=== PATIENT | female | born 1980 | race Caucasian/White ===

== ENCOUNTER 2016-11-15 08:23 | Emergency (ER) | payer BC ==
[~2016-11-15] VITALS: Ht 175.3 cm; Wt 115.0 kg
[~2016-11-15 08:23] MED LIST: ONDA4TAB7 SL
[2016-11-15 08:25] VITALS: BP 129/81; PULSE 99; RESP 16; TEMP 98.1; O2SAT 96
[2016-11-15 08:41] VITALS: BP 139/65; PULSE 98; RESP 18; O2SAT 95
[2016-11-15] MEDS ORDERED: MIRA33504 PO (08:57)
[2016-11-15] MEDS ORDERED: ZOFR4TAB3 SL (08:57)
--- NOTE | 2016-11-15 08:57 | PD ---
HPI Chief Complaint: GI Complaint Time Seen by Provider: 08:45 Travel History International Travel<30 days: No Contact w/Intl Traveler<30days: No Traveled to known affect area: No History of Present Illness HPI Is a 36-year-old woman who presents to the emergency department complaining of nausea and vomiting of . This is her first . She is at 10 weeks 6 days with an EDC of June 07, 2017. She states she's had trouble with nausea and vomiting since 6 weeks. She was using Zofran which helped her a lot however she states she was unable to get a refill from her OB doctor. She went back to the urgent care and they also would not refill her Zofran. She does report that she is scheduled for echo because of risk of adverse effects from the Zofran. She states she otherwise had been feeling one healthy prior to . She has some abdominal pain she to be sick constipation. No pelvic cramping. No vaginal discharge or vaginal bleeding. No urinary symptoms. History Past Medical History Medical History: Denies Significant Hx LMP: 08/31/17 Social History Alcohol Use: No Tobacco Use: No Allergies-Medications (Allergen,Severity, Reaction): Coded Allergies: Penicillin (Verified Allergy, Unknown, 11/15/16) Reported Meds & Prescriptions Reported Meds & Active Scripts Active Ondansetron Odt 4 Mg Tab 4 Mg SL Q6HR PRN Review of Systems Except as stated in HPI: all other systems reviewed are Neg Physical Exam Narrative GENERAL: Well-appearing 36 year-old woman, no acute distress. SKIN: Warm and dry. CARDIOVASCULAR: Regular rate and rhythm. No murmur appreciated. RESPIRATORY: No accessory muscle use. Clear to auscultation. Breath sounds equal bilaterally. GASTROINTESTINAL: Abdomen soft, non-tender, nondistended. Hepatic and splenic margins not palpable. MUSCULOSKELETAL: No obvious deformities. Data Data Last Documented VS Vital Signs Date Time Temp Pulse Resp B/P Pulse Ox O2 Delivery O2 Flow Rate FiO2 11/15/16 08:41 98 18 139/65 95 Room Air 11/15/16 08:25 98.1 Orders Iv Access Insert/Monitor (11/15/16 08:53) Ondansetron Inj (Zofran Inj) (11/15/16 09:00) Ns 1000ml Wide Open 2000 Ml/Hr (11/15/16 09:00) Ns 1000ml Wide Open 2000 Ml/Hr (11/15/16 09:00) MDM Medical Decision Making Medical Screen Exam Complete: Yes Emergency Medical Condition: Yes Differential Diagnosis Nausea vomiting of , dehydration, electrolyte abnormality, infection, other Narrative Course Medical decision making 36 year-old woman with hyperemesis gravidarum. She was using Zofran which helped her a lot but she ran out. We discussed the potential risk of adverse effects from the Zofran versus the risk of maternal dehydration and ongoing vomiting. She would like to continue the Zofran and follow-up with her [place]. I think this is reasonable. Diagnosis Primary Impression: Hyperemesis gravidarum Additional Instructions: Use Zofran sparingly as needed for nausea or vomiting. Use MiraLAX as needed for constipation. Follow-up with your [place] in the next 2-4 days. Return to the emergency department for any new or worsening symptoms. Med/Other Pt SpecificInfo: Prescription(s) given Scripts Polyethylene Glycol 3350 Powder (Miralax Powder)17 Gm Powd17 Gm PO DAILY #1 BOTTLE Mix and dissolve one measuring cap-ful (17 grams) in water or juice. Prov:Willi Downing MD 11/15/16 Ondansetron Odt (Zofran Odt)4 Mg Tab4 Mg SL Q8HR PRN (Nausea/Vomiting) #20 TAB May substitute non-ODT form. Prov:Willi Downing MD 11/15/16 Disposition: 01 DISCHARGE HOME Condition: Stable Willi Downing MD Nov 15, 2016 08:57
[2016-11-15] MEDS ORDERED: SODIUM CHLOR 0.9% 1000 ML INJ 1,000 ML IV ONE ×2 (09:00)
[2016-11-15] MEDS ORDERED: ONDANSETRON HCL 4 MG/2 ML VIAL IV PUSH ONE (09:00)
[2016-11-17] MEDS ORDERED: ONDA4TAB7 SL (15:53)
[2016-12-16] MEDS ORDERED: ONDA4TAB7 SL (13:57)
[2016-12-28] MEDS ORDERED: ONDA4TAB7 SL (09:00)
[2017-01-11] MEDS ORDERED: ZOFR4TAB3 SL (16:07)
[2017-02-25] MEDS ORDERED: AZIT250T3 PO (10:12)
== END 2016-11-15 10:30 | disposition home or self-care (01) ==
LOC: NEPC 08:23
DX: O21.0 Mild hyperemesis gravidarum (principal); Z3A.10 10 weeks gestation of pregnancy
CPT/HCPCS: 96374; 99283; J2405; J7030

== ENCOUNTER → 2017-01-07 | Outpatient (CLI) | payer BC ==
[~2017-01-07] MED LIST changes: +AZIT250T3 PO; +MIRA33504 PO; +ZOFR4TAB3 SL
== END ==
LOC: HPND 07:55
PROVIDERS: ATTEND Obstetrics & Gynecology
DX: O99.212 Obesity complicating pregnancy, second trimester (principal); E66.9 Obesity, unspecified; Z68.37 Body mass index [BMI] 37.0-37.9, adult
CPT/HCPCS: 76811; 76817

== ENCOUNTER → 2017-02-09 | Outpatient (CLI) | payer BC ==
[~2017-02-09] MED LIST changes: -MIRA33504 PO
== END ==
LOC: HPND 07:59
PROVIDERS: ATTEND Obstetrics & Gynecology
DX: O99.212 Obesity complicating pregnancy, second trimester (principal); E66.9 Obesity, unspecified; Z68.37 Body mass index [BMI] 37.0-37.9, adult; Z3A.00 Weeks of gestation of pregnancy not specified
CPT/HCPCS: 76816; 76817; 76825; 76827; 93325

== ENCOUNTER → 2017-03-22 | Outpatient (CLI) | payer BC | LOC: HPND 08:03 | PROVIDERS: ATTEND Obstetrics & Gynecology | DX: O99.323 Drug use complicating pregnancy, third trimester (principal); O99.213 Obesity complicating pregnancy, third trimester; E66.09 Other obesity due to excess calories; Z68.34 Body mass index [BMI] 34.0-34.9, adult; Z3A.29 29 weeks gestation of pregnancy | CPT/HCPCS: 76816 ==

== ENCOUNTER → 2017-04-19 | Outpatient (CLI) | payer BC ==
[~2017-04-19] MED LIST changes: -AZIT250T3 PO
== END ==
LOC: HPND 08:05
PROVIDERS: ATTEND Obstetrics & Gynecology
DX: O99.213 Obesity complicating pregnancy, third trimester (principal); O09.523 Supervision of elderly multigravida, third trimester; Z68.37 Body mass index [BMI] 37.0-37.9, adult
CPT/HCPCS: 76816

== ENCOUNTER 2017-06-13 20:04 | Inpatient (IN) | payer BC ==
[~2017-06-13] VITALS: Ht 175.3 cm; Wt 125.0 kg
[~2017-06-13 20:04] MED LIST changes: +ACYC400T PO
[2017-06-13 22:08] LABS: AUTOMATED NEUTROPHIL # 6.1 TH/MM3 (1.8-7.7); BASOPHIL % 0.3 % (0.0-2.0); EOSINOPHIL # 0.2 TH/MM3 (0-0.4); EOSINOPHIL % 2.3 % (0.0-4.0); HEMO FLAGS DIFF FINAL; LYMPHOCYTE # 1.5 TH/MM3 (1.0-4.8); MEAN CELL VOLUME 79.4 FL (80.0-100.0); MEAN CORPUSCULAR HEMOGLOBIN 26.9 PG (27.0-34.0); MEAN CORPUSCULAR HGB CONC 33.9 % (32.0-36.0); MONO % 6.9 % (0.0-8.0); NEUT % 72.5 % (16.0-70.0); PLATELET COUNT 207 TH/MM3 (150-450); RED BLOOD COUNT 3.66 MIL/MM3 (4.00-5.30); RED CELL DISTRIBUTION WIDTH 13.5 % (11.6-17.2); WHITE BLOOD COUNT 8.5 TH/MM3 (4.0-11.0)
[2017-06-13] MEDS ORDERED: LACTATED RINGER'S 1000 ML INJ 1,000 ML IV PRN (22:41)
[2017-06-13] MEDS ORDERED: SODIUM CHLORID 0.9% 500 ML INJ 500 ML IV PRN (22:45)
[2017-06-13] MEDS ORDERED: OXYTOCIN 30 UNITS-500ML PREMIX 500 ML IV ONE (22:45)
[2017-06-13] MEDS ORDERED: CITRIC ACID-SODIUM CITRATE LIQ 30 ML UDC PO SCH (22:45)
[2017-06-13] MEDS ORDERED: MINERAL OIL 10 ML VIAL TOPICAL PRN (22:45)
[2017-06-13] MEDS ORDERED: LIDOCAINE HCL 1% 50 ML VIAL INFIL PRN (22:45)
[2017-06-13] MEDS ORDERED: LIDOCAINE HCL 1% 50 ML VIAL I-DERMAL PRN (22:45)
[2017-06-13 22:56] LABS: BACTERIA, URINE FEW /hpf; BLOOD, URINE NEG (NEG); COMMENT (UR) CULT NOT INDICATED; CULTURE IF INDICATED CULT NOT INDICATED; GLUCOSE,URINE NEG (NEG); KETONE, URINE NEG (NEG); NITRITE,URINE NEG (NEG); RENAL EPITHELIAL CELLS <1 /hpf; SQUAMOUS EPITHELIAL CELL URINE 2 /hpf (0-5); TRANSITIONAL EPI CELLS, URINE <1 /hpf; URINE COLOR LIGHT-YELLOW (YELLW/STRAW)
[2017-06-13] MEDS: LACTATED RINGER'S 1000 ML INJ 1,000 ML IV SCH ×2 (22:56→23:48)
[2017-06-13] MEDS ORDERED: SODIUM CHLOR 0.9% 1000 ML INJ 1,000 ML IV PRN (23:01)
--- NOTE | 2017-06-13 23:30 | HHI.HP ---
HPI Chief Complaint Postdates induction Date Seen: Jun 13, 2017 Time Seen: 23:20 Travel History International Travel<30 Days: No Contact w/Intl Traveler<30Days: No Known Affected Area: No History of Present Illness HPI Patient is 36-year-old white female at 41 weeks who was admitted for postdates [facility], she has no complaints problems no pain bleeding or leakage of fluid. Baby is active. heart rate tracing is reactive. No contractions noted. Weeks Gestation: 41 Para: 0 : 1 History Past Medical History Narrative Medical History of herpes and is been on acyclovir Social History Alcohol Use: No Tobacco Use: No Substance Abuse: No Allergies-Medications (Allergen,Severity, Reaction): Coded Allergies: penicillin G (Unverified Allergy, Unknown, 06/11/17) Home Meds Active Scripts Acyclovir (Acyclovir) 400 Mg Tab, 400 MG PO TID for Mgmt Viral Infection, #28 TAB 0 Refills Prov:Imani Treviño 06/07/17 Discontinued Scripts Ondansetron Odt (Ondansetron Odt) 4 Mg Tab, 4 MG SL Q8HR Y for Nausea/Vomiting, #40 TAB 1 Refill Prov:Jenn Lopez 05/07/17 Ondansetron Odt (Zofran Odt) 4 Mg Tab, 4 MG SL Q8HR Y for Nausea/Vomiting, #30 TAB 3 Refills May substitute non-ODT form. Prov:Jenn Lopez 01/11/17 Review of Systems General / Constitutional: No: Fever, Weight Gain, Chills, Other Eyes: No: Diploplia, Blurred Vision, Visual changes, Pain, Photophobia HENT: No: Headaches, Vertigo, Lightheadedness Cardiovascular: No: Irregular Rhythm, Chest Pain or Discomfort, Palpitations, Tachycardia, Syncope, Varicosities, Edema, Cyanosis Respiratory: No: Cough, Short of Breath, Other Gastrointestinal: No: Nausea, Vomiting, Diarrhea Genitourinary: No: Decreased Urinary Output, Oliguria Musculoskeletal: No: Limited ROM, Weakness, Cramping, Edema, Pain Skin: No Rash, No Itching, No Dryness, No Lumps, No Change in Pigmentation, No Change in Nails, No Alopecia, No Lesions Neurologic: No: Weakness, Dizziness, Syncope, Focal Abnormalities, Coordination Problem, Headache, Slurred Speech, Seizures Psychiatric: No: Depression, Suicidal Ideations, Homicidal Ideation Endocrine: No: Heat Intolerance, Cold Intolerance, Polydipsia, Polyuria, Other Physical Exam Narrative GENERAL: Well-nourished, well-developed patient. SKIN: Warm and dry. HEAD: Normocephalic and atraumatic. EYES: No scleral icterus. No injection or drainage. ENT: No nasal drainage noted. Mucous membranes pink. Airway patent. NECK: Supple, trachea midline. No JVD. CARDIOVASCULAR: Regular rate and rhythm without murmurs, gallops, or rubs. RESPIRATORY: Breath sounds equal bilaterally. No accessory muscle use. BREASTS: Bilateral exam showed no masses , no retractions, no nipple discharge. ABDOMEN/GI: Abdomen soft, non-tender, bowel sounds present, no rebound, no guarding Gravid to [-40] weeks size Fundal Height: 40[-] GENITOURINARY: External Genitalia: intact and normal in appearance BUS glands: [-] Cervix: [-post] Dilatation: [1-] Effacement: [-50] Station: [-3] ballotable Presentation: [vtx] Membranes: [intact ] Uterine Contractions: [rare-] FHT's: Category: [1-] Baseline: [133-] Reactive: [-yes] Variability: [-mod] Decels: [-0] EXTREMITIES: No cyanosis or edema. BACK: Nontender without obvious deformity. No CVA tenderness. NEUROLOGICAL: Awake and alert. Motor and sensory grossly within normal limits. Five out of 5 muscle strength in all muscle groups. Normal speech. Caprini VTE Risk Assessment Caprini VTE Risk Assessment: No/Low Risk (score <= 1) Caprini Risk Assessment Model Point Value = 1 Point Value = 2 Point Value = 3 Point Value = 5 Age 41-60 Minor surgery BMI > 25 kg/m2 Swollen legs Varicose veins or History of unexplained or recurrent spontaneous Oral contraceptives or hormone replacement Sepsis (< 1 month) Serious lung disease, including pneumonia (< 1 month) Abnormal pulmonary function Acute myocardial infarction Congestive heart failure (< 1 month) History of inflammatory bowel disease Medical patient at bed rest Age 61-74 Arthroscopic surgery Major open surgery (> 45 min) Laparoscopic surgery (> 45 min) Malignancy Confined to bed (> 72 hours) Immobilizing plaster cast Central venous access Age >= 75 History of VTE Family history of VTE Factor V Leiden Prothrombin [id number] Lupus anticoagulant Anticardiolipin antibodies Elevated serum homocysteine Heparin-induced thrombocytopenia Other congenital or acquired thrombophilia Stroke (< 1 month) Elective arthroplasty Hip, pelvis, or leg fracture Acute spinal cord injury (< 1 month) Prophylaxis Regimen Total Risk Factor Score Risk Level Prophylaxis Regimen 0-1 Low Early ambulation 2 Moderate Order ONE of the following: *Sequential Compression Device (SCD) *Heparin 5000 units SQ BID 3-4 Higher Order ONE of the following medications: *Heparin 5000 units SQ TID *Enoxaparin/Lovenox 40 mg SQ daily (WT < 150 kg, CrCl > 30 mL/min) *Enoxaparin/Lovenox 30 mg SQ daily (WT < 150 kg, CrCl > 10-29 mL/min) *Enoxaparin/Lovenox 30 mg SQ BID (WT < 150 kg, CrCl > 30 mL/min) AND/OR *Sequential Compression Device (SCD) 5 or more Highest Order ONE of the following medications: *Heparin 5000 units SQ TID (Preferred with Epidurals) *Enoxaparin/Lovenox 40 mg SQ daily (WT < 150 kg, CrCl > 30 mL/min) *Enoxaparin/Lovenox 30 mg SQ daily (WT < 150 kg, CrCl > 10-29 mL/min) *Enoxaparin/Lovenox 30 mg SQ BID (WT < 150 kg, CrCl > 30 mL/min) AND *Sequential Compression Device (SCD) Data Data Orders Orders Complete Blood Count With Diff (06/13/17 21:58) Type And Screen (06/13/17 21:58) Admit To Inpatient (06/13/17 ) Vital Signs (Adult) .Per protocol (06/13/17 22:41) Heart (06/13/17 22:41) Amnioinfusion (06/13/17 22:41) Urinary Catheter Management .ONCE (06/13/17 22:41) Diet Liquid (06/14/17 Breakfast) Lactated Ringer's 1000 Ml Inj (Lr 1000 M (06/13/17 22:41) Lactated Ringer's 1000 Ml Inj (Lr 1000 M (06/13/17 22:41) Sodium Chlorid 0.9% 500 Ml Inj (Ns 500 M (06/13/17 22:45) Sodium Chlor 0.9% 1000 Ml Inj (Ns 1000 M (06/13/17 23:01) Lidocaine 1% Inj (50 Ml) (Xylocaine 1% I (06/13/17 22:45) Citric Acid-Sodium Citrate Liq (Bicitra (06/13/17 22:45) Fentanyl Inj (Fentanyl Inj) (06/13/17 22:45) Fentanyl Inj (Fentanyl Inj) (06/13/17 22:45) Urinalysis - C+S If Indicated (06/13/17 22:41) Resp Oxygen Non Rebreathe Mask (06/13/17 ) ^ Epidural / Intrathecal Infus (06/13/17 22:41) Oxytocin 30 Units-500ml Premix (Pitocin (06/13/17 22:45) Lidocaine 1% Inj (50 Ml) (Xylocaine 1% I (06/13/17 22:45) Light Mineral Oil (Muri-Lube Oil) (06/13/17 22:45) Specimen To Be Collected PRN (06/13/17 22:41) Labs Laboratory Tests Test 06/13/17 21:07 06/13/17 21:56 White Blood Count 8.5 Red Blood Count 3.66 Hemoglobin 9.8 Hematocrit 29.0 Mean Corpuscular Volume 79.4 Mean Corpuscular Hemoglobin 26.9 Mean Corpuscular Hemoglobin Concent 33.9 Red Cell Distribution Width 13.5 Platelet Count 207 Mean Platelet Volume 10.5 Neutrophils (%) (Auto) 72.5 Lymphocytes (%) (Auto) 18.0 Monocytes (%) (Auto) 6.9 Eosinophils (%) (Auto) 2.3 Basophils (%) (Auto) 0.3 Neutrophils # (Auto) 6.1 Lymphocytes # (Auto) 1.5 Monocytes # (Auto) 0.6 Eosinophils # (Auto) 0.2 Basophils # (Auto) 0.0 CBC Comment DIFF FINAL Differential Comment Urine Color LIGHT-YELLOW Urine Turbidity CLEAR Urine pH 6.0 Urine Specific [place] 1.008 Urine Protein NEG Urine Glucose (UA) NEG Urine Ketones NEG Urine Occult Blood NEG Urine Nitrite NEG Urine Bilirubin NEG Urine Urobilinogen LESS THAN 2.0 Urine Leukocyte Esterase NEG Urine RBC 1 Urine WBC 2 Urine Squamous Epithelial Cells 2 Urine Transitional Epithelial Cells <1 Urine Renal Epithelial Cells <1 Urine Amorphous Sediment RARE Urine Bacteria FEW Microscopic Urinalysis Comment CULT NOT INDICATED Assessment/Plan Assessment and Plan Patient is 36-year-old white female at 41 weeks tomorrow for by [facility] for postdates induction. She has no complaints problems, heart rate is reactive and no contractions noted, cervix is fingertip to 1 cm 50 % -3 with a ballotable head palpable Impression 41 week induction of labor in primiparous patient Plan-Cytotec tonight possibly AROM with.pit in The morning Shine Fountain II, MD Jun 13, 2017 23:30
[2017-06-13] MEDS: MISOPROSTOL 25 MCG SUPP VAGINAL SCH (23:46)
[2017-06-14] VITALS (83 sets, daily range): BP systolic 100–139; BP diastolic 44–101; PULSE 74–119; RESP 17–20; TEMP 96.9–98.6
[2017-06-14] MEDS: MISOPROSTOL 25 MCG SUPP VAGINAL SCH ×2 (05:10→07:30)
[2017-06-14] MEDS: ACETAMINOPHEN 325 MG TAB PO PRN ×2 (05:11→10:27)
[2017-06-14] MEDS ORDERED: OXYTOCIN 30 UNITS-500ML PREMIX 500 ML IV SCH ×2 (09:30→11:30)
--- NOTE | 2017-06-14 09:35 | PD.LABORPN ---
Subjective Subjective AROM -light meconium cx 1-2 /50/-3 /vtx IUPC /FSE inserted will augment with pitocin prn Objective Vital Signs Vital Signs Date Time Temp Pulse Resp B/P (MAP) Pulse Ox O2 Delivery O2 Flow Rate FiO2 06/14/17 08:41 18 06/14/17 08:37 88 106/53 (70) 06/14/17 07:30 98.0 17 06/14/17 07:00 17 06/14/17 05:24 96.9 06/14/17 05:24 74 18 110/63 (79) Objective Pelvic Exam: Cervix: [-] Dilatation: [1-2-] Effacement: [-50] Station: [-3] Presentation: [-vtx] Membranes: [ ruptured]light mec Uterine Contractions: [irreg-] FHT's: Category: [1-] Baseline: [133-] Reactive: [-yes] Variability: [mod-] Decels: [-0] Weeks Gestation: 41 Gest Age Assessed Date: Jun 13, 2017 Gest Age Assessed Time: 21:00 Pt started active labor?: No Medical induction of labor?: Yes Medical induction start date: Jun 13, 2017 Medical induction start time: 22:00 Artificial rupture of membrane: Yes Artificial ROM date: Jun 14, 2017 Artifical ROM time: 09:30 Assessment/Plan Assessment and Plan 41 wk induction , NST reactive irreg CTXs AROM meconium cx 1-2 /50/-3/vtx Shine Fountain II, MD Jun 14, 2017 09:35
--- NOTE | 2017-06-14 10:08 | PD.LABORPN ---
Subjective Subjective F @41 weeks states she is feeling contractions and movement. Denies pain, fluid leakage, vaginal bleeding. No other concerns. Objective Vital Signs Vital Signs Date Time Temp Pulse Resp B/P (MAP) Pulse Ox O2 Delivery O2 Flow Rate FiO2 06/14/17 08:41 18 06/14/17 08:37 88 106/53 (70) 06/14/17 07:30 98.0 17 06/14/17 07:00 17 06/14/17 05:24 96.9 06/14/17 05:24 74 18 110/63 (79) Objective Pelvic Exam: Cervix: mid-position Dilatation: 2cm Effacement: 50 Station: -2 Presentation: vertex Membranes: AROM Uterine Contractions: yes,q2-5 min FHT's: Category: 1 Baseline: 135 Reactive: yes Variability: morerate Decels: variable Weeks Gestation: 41 Gest Age Assessed Date: Jun 14, 2017 Gest Age Assessed Time: 09:34 Pt started active labor?: No Medical induction of labor?: Yes Medical induction start date: Jun 13, 2017 Medical induction start time: 22:45 Artificial rupture of membrane: Yes Artificial ROM date: Jun 14, 2017 Artifical ROM time: 09:28 Assessment/Plan Assessment and Plan 36 y/o F @ 41 wks admitted for induction of labor - AROM this AM - Oxytocin drip started - recheck for 4cm dilation in the next [address] Vargas and Dr[address] Александр Giron,Shanice Mancilla MD R1 Jun 14, 2017 10:08
[2017-06-14] MEDS: LACTATED RINGER'S 1000 ML INJ 1,000 ML IV SCH (10:27)
[2017-06-14] MEDS ORDERED: ePHEDrine/NS 25 MG/5 ML SYR ONE (18:31)
[2017-06-14] MEDS ORDERED: fentaNYL 2MCG-BUPIV 0.125% INJ 100 ML ONE (18:31)
--- NOTE | 2017-06-14 18:46 | PD.LABORPN ---
Subjective Subjective Patient uncomfortable with UC, requests epidural. Objective Vital Signs Vital Signs Date Time Temp Pulse Resp B/P (MAP) Pulse Ox O2 Delivery O2 Flow Rate FiO2 06/14/17 13:31 81 113/66 (82) 06/14/17 13:15 98.1 06/14/17 13:15 18:30 71 18 131/85 Objective Pelvic Exam: SVE: 4/80/-2 IUPC: UC q 2-4 min Pitocin @ 18mu/ min FHT's: FSE Category: I Baseline: 140 Reactive: +accelerations to 160 Variability: mod Decels: occasional variable Weeks Gestation: 41 Gest Age Assessed Date: Jun 14, 2017 Gest Age Assessed Time: 09:34 Pt started active labor?: Yes Active labor start date: Jun 14, 2017 Active labor start time: 18:46 Medical induction of labor?: Yes Medical induction start date: Jun 13, 2017 Medical induction start time: 22:45 Artificial rupture of membrane: Yes Artificial ROM date: Jun 14, 2017 Artifical ROM time: 09:28 Assessment/Plan Assessment and Plan IOL @ 41 weeks S/p Cervidil overnight Hx of HSV, no lesions on Acyclovir Now on Pitocin for augmentation s/p AROM this am Now starting active labor FHT reassuring at this time Desires epidural Yelitza Mancilla MD Jun 14, 2017 18:46
[2017-06-14] MEDS ORDERED: ONDANSETRON HCL 4 MG/2 ML VIAL IV PUSH ONE (19:45)
[2017-06-15] VITALS (14 sets, daily range): BP systolic 107–141; BP diastolic 56–88; PULSE 90–118; RESP 16–18; TEMP 97.8–98.6
[2017-06-15 01:00] LABS: BLOOD GAS BASE EXCESS -1.2 mmol/L (-2-2); BLOOD GAS O2 HGB SATURATION 20 % (90-100); CORD BLOOD GAS HCO3 24 mmol/L (21-29); CORD BLOOD GAS PCO2 49 mmHG (34-78); CORD BLOOD GAS PH 7.32 (7.14-7.42); CORD BLOOD GAS PO2 17 mmHG (3.0-40.0); DRAW SITE CORD BLOOD; STAT YES
--- NOTE | 2017-06-15 01:11 | PD.OB.DELI ---
Weeks gestation: 41 Gest age assessed date: Jun 14, 2017 Gest age assessed time: 09:34 Pt started active labor?: Yes Active labor start date: Jun 14, 2017 Active labor start time: 18:46 Medical induction of labor?: Yes Medical induction start date: Jun 13, 2017 Medical induction start time: 22:45 Artificial rupture of membrane: Yes Artificial ROM date: Jun 14, 2017 Artifical ROM time: 09:28 Anesthesia: Epidural Vaginal Delivery: Normal Presentation: Occiput anterior Nuchal Cord: x1 (reduced) Delayed cord clamping (45 sec): Yes : Female Delivery date: Jun 15, 2017 Delivery time: 00:35 One Minute : 7 Five Minute : 9 Weight: 3835g Placenta: Spontaneous delivery, Intact (grossly normal) Laceration: 1 deg, 2 deg (laceration on left vaginal side wall extending to midline and curved to perineum and to the right. ) Repair: Vicryl running Estimated blood loss: 300 ml Additional Information 41 weeks with IOL with cervicil followed by Pitocin augmentation. AROM with meconium fluid. FSE and IUPC placed. Epidural for anesthesia. Early and variable decelerations intermittently at the end of stage I labor. after reduction of loose nuchal cord x 1. Posterior shoulder delivered prior to anterior shoulder. Placental spontaneous and intact, grossly normal. Cord gases obtained secondary to decelerations. Laceration second degree and first degree. Irregular shaped extending from left vaginal side was to perineum and smaller extensions on right. Repaired with Vicryl x 2 sutures. Hemostasis after vaginal packing 30 min. EBL 300ml. Yelitza Mancilla MD Jun 15, 2017 01:11
[2017-06-15] MEDS ORDERED: SODIUM CHLORIDE 0.9% FLUSH 10 ML FLUSH IV FLUSH PRN (01:15)
[2017-06-15] MEDS ORDERED: ONDANSETRON ODT 4 MG TAB PO PRN (01:15)
[2017-06-15] MEDS ORDERED: BENZOCAINE 20% TOPICAL SPRAY 60 ML CAN TOPICAL PRN (01:15)
[2017-06-15] MEDS ORDERED: WITCH HAZEL 50%/GLYCERIN 12.5% 40 PAD JAR TOPICAL PRN (01:15)
[2017-06-15] MEDS ORDERED: ALUMINUM/MAGNESIUM/SIMETH 30 ML CUP PO PRN (01:15)
[2017-06-15] MEDS ORDERED: OXYTOCIN 30 UNITS-500ML PREMIX 500 ML IV SCH (01:15)
[2017-06-15] MEDS ORDERED: oxyCODONE/ACETAMINOPHEN 5 MG/325 MG TAB PO PRN ×2 (01:15)
[2017-06-15] MEDS ORDERED: ZOLPIDEM TARTRATE 5 MG TAB PO PRN (01:15)
[2017-06-15] MEDS: IBUPROFEN 600 MG TAB PO PRN ×4 (02:28→22:09)
[2017-06-15] MEDS: ACETAMINOPHEN 325 MG TAB PO PRN ×3 (02:28→15:44)
--- NOTE | 2017-06-15 08:57 | HHI.OB ---
Subjective Post Day: 0 Remarks day #0. AFVSS overnight. Pain minimal. Decreased lochia. Denies dysuria. No breast tenderness. She is feeding the baby via breast. Appetite good. No nausea or vomiting. Endorses flatus. No bowel movement. Ambulating well. Denies calf pain, shortness of breath, or cough. Otherwise, she is doing well this morning and has no other complaints. Objective Vitals/I&O Vital Signs Date Time Temp Pulse Resp B/P (MAP) Pulse Ox O2 Delivery O2 Flow Rate FiO2 06/15/17 04:40 98.3 102 18 125/82 (96) 06/15/17 02:30 17 06/15/17 02:15 118 06/15/17 02:15 98.2 18 06/15/17 02:15 113/67 (82) 06/15/17 02:01 108 141/77 (98) 06/15/17 02:00 18 06/15/17 01:45 17 06/15/17 01:45 107 138/88 (105) 06/15/17 01:30 108 128/87 (101) 06/15/17 01:27 18 06/15/17 01:15 99 125/84 (98) 06/15/17 01:01 98.4 18 06/15/17 01:00 95 18 107/74 (85) 06/15/17 01:00 98.4 06/15/17 00:59 109/56 (73) 06/15/17 00:59 90 06/14/17 23:45 105 125/79 (94) 06/14/17 23:31 97 136/87 (103) 06/14/17 23:30 98.0 06/14/17 23:15 88 130/80 (97) 06/14/17 23:01 88 125/79 (94) 06/14/17 23:00 20 06/14/17 22:45 89 121/82 (95) 06/14/17 22:30 88 119/78 (92) 06/14/17 22:16 95 100/44 (62) 06/14/17 22:00 94 06/14/17 22:00 105/57 (73) 06/14/17 21:30 92 124/85 (98) 10/2/17 21:21 20 06/14/17 21:15 91 108/66 (80) 06/14/17 21:07 104 109/71 (84) 06/14/17 21:00 17 06/14/17 21:00 97.4 06/14/17 20:55 86 06/14/17 20:50 89 06/14/17 20:45 18 06/14/17 20:45 95 114/71 (85) 06/14/17 20:40 88 06/14/17 20:35 93 06/14/17 20:30 83 113/72 (86) 06/14/17 20:30 18 06/14/17 20:25 91 06/14/17 20:20 94 06/14/17 20:15 114/69 (84) 06/14/17 20:15 20 06/14/17 20:10 93 06/14/17 20:05 93 06/14/17 20:00 105 109/63 (78) 06/14/17 20:00 97.8 18 06/14/17 19:55 97 06/14/17 19:50 91 06/14/17 19:46 106/59 (75) 06/14/17 19:40 108 06/14/17 19:36 125/76 (92) 06/14/17 19:36 119 06/14/17 19:32 98 116/71 (86) 06/14/17 19:30 105 115/73 (87) 06/14/17 19:25 95 118/70 (86) 06/14/17 19:20 101 06/14/17 19:20 91 06/14/17 19:20 113/70 (84) 06/14/17 19:16 124/68 (86) 06/14/17 19:10 96 06/14/17 19:10 98 135/89 (104) 06/14/17 19:05 117 06/14/17 19:01 98 123/73 (90) 06/14/17 18:45 18 06/14/17 18:35 87 121/74 (90) 06/14/17 18:15 98.6 06/14/17 18:15 18 06/14/17 18:00 77 121/83 (96) 06/14/17 17:45 20 06/14/17 17:30 83 120/77 (91) 06/14/17 17:00 86 104/61 (75) 06/14/17 16:45 19 06/14/17 16:31 80 108/66 (80) 06/14/17 16:15 98.2 06/14/17 16:15 18 06/14/17 16:00 80 123/81 (95) 06/14/17 15:31 87 119/73 (88) 06/14/17 15:15 97.8 06/14/17 15:14 17 06/14/17 15:00 86 120/83 (95) 06/14/17 14:45 18 06/14/17 14:30 88 133/80 (97) 06/14/17 14:15 18 06/14/17 14:00 86 125/84 (98) 06/14/17 13:57 80 129/90 (103) 06/14/17 13:45 17 06/14/17 13:31 81 113/66 (82) 06/14/17 13:15 98.1 06/14/17 13:15 18 06/14/17 13:01 79 123/84 (97) 06/14/17 12:31 85 119/87 (98) 06/14/17 12:14 18 06/14/17 12:08 92 127/88 (101) 06/14/17 11:40 93 124/85 (98) 06/14/17 11:37 92 139/101 (114) 06/14/17 11:31 86 114/61 (78) 06/14/17 11:07 98.6 06/14/17 11:01 90 17 130/67 (88) 06/14/17 10:45 18 06/14/17 10:14 18 06/14/17 09:36 84 125/77 (93) 06/14/17 09:30 98.5 17 Intake & Output 06/15/17 06/15/17 07:00 19:00 Intake Total 1500 ml Balance 1500 ml Intake IV Total 1500 ml Objective Remarks GENERAL: Well-nourished, well-developed patient. CARDIOVASCULAR: Regular rate and rhythm without murmurs, gallops, or rubs. RESPIRATORY: Breath sounds equal bilaterally. No accessory muscle use. ABDOMEN/GI: Abdomen soft, non-tender. Fundus: Firm, non-tender at umbilicus. GENITOURINARY: Light to moderate bleeding. EXTREMITIES: No cyanosis or edema, non-tender, without signs of DVT. Medications and IVs Current Medications Medications (Trade) Dose Ordered Sig/Belinda Route Start Time Stop Time Status Last Admin (NS Flush) 2 ml BID IV FLUSH 06/15/17 09:00 (NS Flush) 2 ml UNSCH PRN IV FLUSH 06/15/17 01:15 (Tylenol) 650 mg Q4H PRN PO 06/15/17 01:15 06/15/17 02:28 (Motrin) 600 mg Q6H PRN PO 06/15/17 01:15 06/15/17 02:28 (Percocet 5-325 Mg) 1 tab Q4H PRN PO 06/15/17 01:15 (Percocet 5-325 Mg) 2 tab Q4H PRN PO 06/15/17 01:15 (Americaine 20% Top Spr) 1 spray Q4H PRN TOPICAL 06/15/17 01:15 (Tucks Pads) 1 applic QID PRN TOPICAL 06/15/17 01:15 (Lucie-Colace) 2 tab Q12H PRN PO 06/15/17 01:15 (Ambien) 5 mg HS PRN PO 06/15/17 01:15 (M-M-R Ii Inj) 0.5 ml ONCE ONCE SQ 06/15/17 16:00 06/15/17 16:01 (Boostrix Inj) 0.5 ml ONCE ONCE IM 06/15/17 16:00 06/15/17 16:01 (Mag-Al Plus Susp Liq) 15 ml Q8H PRN PO 06/15/17 01:15 (Zofran Odt) 4 mg Q6H PRN PO 06/15/17 01:15 Assessment/Plan Assessment and Plan 36y/o who is PPD#0 s/p . -Continue routine care. -Percocet and Motrin PRN pain. -Encouraged OOB. Advised pelvic rest for 6 wks. -Will need a f/u appt. within 6 wks. -Re: ctrl, she s undecided -D/c in 1-2 more days. wdw OB attending Cesario Vargas MD, R2 Jun 15, 2017 08:57
[2017-06-15] MEDS ORDERED: SODIUM CHLORIDE 0.9% FLUSH 10 ML FLUSH IV FLUSH SCH (09:00)
[2017-06-15] MEDS ORDERED: DIPHTH/TETANUS/ACEL PERTUSSIS (BOOSTER) 0.5 ML VIAL/PFS IM ONE (16:00)
[2017-06-15] MEDS ORDERED: MEASLES, MUMPS, RUBELLA VACCINE 0.5 ML VIAL SQ ONE (16:00)
[2017-06-15 16:07] LABS: HEMATOCRIT 26.5 % (35.0-46.0); MEAN CORPUSCULAR HEMOGLOBIN 26.3 PG (27.0-34.0); MEAN CORPUSCULAR HGB CONC 32.9 % (32.0-36.0); PLATELET COUNT 203 TH/MM3 (150-450); RED BLOOD COUNT 3.31 MIL/MM3 (4.00-5.30); RED CELL DISTRIBUTION WIDTH 13.8 % (11.6-17.2); REVIEW FLAG FINAL; WHITE BLOOD COUNT 10.7 TH/MM3 (4.0-11.0)
[2017-06-15] MEDS: DOCUSATE SODIUM 50 MG/SENNA 8.6 MG TAB PO PRN (18:07)
[2017-06-16 08:00] VITALS: BP 117/79; PULSE 104; RESP 18; TEMP 98.5
[2017-06-16] MEDS: IBUPROFEN 600 MG TAB PO PRN ×2 (08:18→14:22)
[2017-06-16] MEDS: DOCUSATE SODIUM 50 MG/SENNA 8.6 MG TAB PO PRN (08:19)
[2017-06-16] MEDS: ACETAMINOPHEN 325 MG TAB PO PRN ×2 (08:19→14:23)
[2017-06-16] MEDS ORDERED: SENN1TAB PO (08:39)
[2017-06-16] MEDS ORDERED: IBUP-232 PO (08:39)
--- NOTE | 2017-06-16 08:39 | HHI.OB ---
Subjective Post Day: 1 Remarks day #1. AFVSS overnight. Pain controlled with medications. Decreased lochia. Denies dysuria. No breast tenderness. She is feeding the baby via breast/bottle. Appetite good. No nausea or vomiting. Positive flatus. No bowel movement. Ambulating well. Denies calf pain, shortness of breath, or cough. Otherwise, she is doing well this morning and has no other complaints. Objective Vitals/I&O Vital Signs Date Time Temp Pulse Resp B/P (MAP) Pulse Ox O2 Delivery O2 Flow Rate FiO2 06/16/17 08:00 98.5 104 18 117/79 (92) 06/15/17 22:00 98.6 91 16 06/15/17 22:00 112/88 (96) Objective Remarks GENERAL: Well-nourished, well-developed patient. CARDIOVASCULAR: Regular rate and rhythm without murmurs, gallops, or rubs. RESPIRATORY: Breath sounds equal bilaterally. No accessory muscle use. ABDOMEN/GI: Abdomen soft, non-tender. Fundus: Firm, non-tender at umbilicus. GENITOURINARY: Light to moderate bleeding. EXTREMITIES: No cyanosis or edema, non-tender, without signs of DVT. Medications and IVs Current Medications Medications (Trade) Dose Ordered Sig/Belinda Route Start Time Stop Time Status Last Admin (NS Flush) 2 ml BID IV FLUSH 06/15/17 09:00 (NS Flush) 2 ml UNSCH PRN IV FLUSH 06/15/17 01:15 (Tylenol) 650 mg Q4H PRN PO 06/15/17 01:15 06/16/17 08:19 (Motrin) 600 mg Q6H PRN PO 06/15/17 01:15 06/16/17 08:18 (Percocet 5-325 Mg) 1 tab Q4H PRN PO 06/15/17 01:15 (Percocet 5-325 Mg) 2 tab Q4H PRN PO 06/15/17 01:15 (Americaine 20% Top Spr) 1 spray Q4H PRN TOPICAL 06/15/17 01:15 (Tucks Pads) 1 applic QID PRN TOPICAL 06/15/17 01:15 (Lucie-Colace) 2 tab Q12H PRN PO 10/3/17 01:15 06/16/17 08:19 (Ambien) 5 mg HS PRN PO 06/15/17 01:15 (Mag-Al Plus Susp Liq) 15 ml Q8H PRN PO 06/15/17 01:15 (Zofran Odt) 4 mg Q6H PRN PO 06/15/17 01:15 Assessment/Plan Assessment and Plan 36y/o who is PPD#1 s/p . -Continue routine care. -Percocet and Motrin PRN pain. -Encouraged OOB. Advised pelvic rest for 6 wks. -Will need a f/u appt. within 6 wks. -Re: ctrl, she is undecided -D/c later today dw OB attending Cesario Vargas MD, R2 Jun 16, 2017 08:38
--- NOTE | 2017-06-16 08:42 | HHI.DCPOC ---
Discharge Care Plan Diagnosis: (1) care following vaginal delivery Report Symptoms to Your Doctor -Temperature above 100.5 degrees -Redness, of incision or excessive or foul smelling drainage -Unusual pain or calf pain -Increased vaginal bleeding -Painful or difficulty urinating -Feelings of extreme sadness or anxiety after 2 weeks Goals to Promote Your Health * To prevent worsening of your condition and complications * To maintain your health at the optimal level Directions to Meet Your Goals Take your medications as prescribed Follow your dietary instruction Follow activity as directed Ensure plenty of rest for recovery Drink fluids for hydration Keep your appointments as scheduled Take your immunizations and boosters as scheduled If your symptoms worsen call your PCP, if no PCP go to Urgent Care Center or Emergency Room Smoking is Dangerous to Your Health. Avoid second hand smoke Call the 24-hour crisis hotline for domestic abuse at Shanice Giron MD R1 Jun 16, 2017 08:42
[2017-06-21] MEDS ORDERED: PEPCCHW8 PO (10:08)
[2017-06-21] MEDS ORDERED: FERRTAB2 PO (10:08)
[2017-06-22] MEDS ORDERED: HEMATAB PO (08:34)
== END 2017-06-16 18:53 | disposition home or self-care (01) | DRG 775 ==
LOC: H2EB 20:04 → H1EA 06-15 03:59
PROVIDERS: ADMIT Obstetrics & Gynecology Maternal & Fetal Medicine; ATTEND Obstetrics & Gynecology Maternal & Fetal Medicine
PROC: 10E0XZZ Delivery of Products of Conception, External Approach (ICD-10-PCS; principal; 2017-06-13)
PROC: 0KQM0ZZ Repair Perineum Muscle, Open Approach (ICD-10-PCS; 2017-06-13)
PROC: 10907ZC Drainage of Amniotic Fluid, Therapeutic from Products of Conception, Via Natural or Artificial Opening (ICD-10-PCS; 2017-06-13)
PROC: 10H07YZ Insertion of Other Device into Products of Conception, Via Natural or Artificial Opening (ICD-10-PCS; 2017-06-13)
PROC: 4A1H74Z Monitoring of Products of Conception, Cardiac Electrical Activity, Via Natural or Artificial Opening (ICD-10-PCS; 2017-06-13)
DX: O48.0 Post-term pregnancy (principal); O77.0 Labor and delivery complicated by meconium in amniotic fluid; Z37.0 Single live birth; O76 Abnormality in fetal heart rate and rhythm complicating labor and delivery; O69.81X0 Labor and delivery complicated by cord around neck, without compression, not applicable or unspecified; Z3A.41 41 weeks gestation of pregnancy; O70.1 Second degree perineal laceration during delivery
CPT/HCPCS: 59025; 81001; 82805; 85025; 85027; 86850; 86900; 86901; J2590; J3010; J7120